=== PATIENT | male | born 1950 | race Two or more races ===

== ENCOUNTER 2024-03-12 03:57 | Emergency (ER) | payer OTHER ==
[~2024-03-12] VITALS: Ht 152.4 cm; Wt 68.9 kg
[2024-03-12 07:07] LABS: Basophils # (auto) 0 10 ^3/uL (0-0.2); Basophils % (auto) 0.2 % (0.0-2.0); Eosinophils # (auto) 0 10 ^3/uL (0-0.8); Eosinophils % (auto) 0.6 % (0.0-7.0); Hematocrit 42.5 % (41.0-53.0); Hemoglobin 14.5 g/dL (13.5-17.5); Lymphocytes # (auto) 1.2 10 ^3/uL (0.4-5.4); Lymphocytes % (auto) 16.8 % (10.0-50.0); Mean Corpuscular Hemoglobin 32.2 pg (28.0-32.0); Mean Corpuscular Hgb Conc. 34.1 g/dL (32.0-36.0); Mean Corpuscular Volume 94.5 fL (80.0-100.0); Monocytes # (auto) 0.6 10 ^3/uL (0-1.3); Monocytes % (auto) 8.4 % (0.0-12.0); Neutrophils # (auto) 5.4 10 ^3/uL (1.6-8.6); Nucleated Red Blood Cells % 0.1 %; Red Blood Cells 4.49 10^6/uL (4.5-5.90); Red Cell Distribution Width 12.3 % (11.8-14.3); White Blood Cell 7.2 10^3/uL (4.4-10.8)
[2024-03-12 07:21] LABS: Chloride 105 mmol/L (98-107); Potassium 4.2 mmol/L (3.5-5.1); Sodium 134 mmol/L (136-145)
[2024-03-12 07:22] LABS: Anion Gap 2 (5-15); Carbon Dioxide 27 mmol/L (20-30)
[2024-03-12 07:23] LABS: Calcium 9.7 mg/dL (8.7-10.4)
[2024-03-12 07:27] LABS: BUN/Creatinine Ratio 16.9 (10.0-20.0); Blood Urea Nitrogen 15 mg/dL (9-23); Glucose 112 mg/dL (74-106)
[2024-03-12] MEDS: IBUPROFEN 600 MG TAB PO ONE (09:09)
[2024-03-12] MEDS: cloNIDine HCL 0.1 MG TAB PO ONE (09:10)
[2024-03-12 09:54] VITALS: BP 128/84; PULSE 61; RESP 15; TEMP 98; O2SAT 95
== END 2024-03-12 10:04 | disposition left against medical advice (07) ==
LOC: ER 03:57
DX: S29.011A Strain of muscle and tendon of front wall of thorax, initial encounter (principal); I10 Essential (primary) hypertension; Z88.0 Allergy status to penicillin; V49.59XA Passenger injured in collision with other motor vehicles in traffic accident, initial encounter; Y93.89 Activity, other specified; Y92.89 Other specified places as the place of occurrence of the external cause; Y99.8 Other external cause status
CPT/HCPCS: 36415; 71101; 80048; 85025